=== PATIENT | female | born 1975 | race Caucasian/White ===

== ENCOUNTER 2018-03-06 02:19 | Emergency (ER) | payer SELFPAY ==
[2018-03-06] MEDS ORDERED: LIDOCAINE 1% (MDV) 20 ML INJ SC ×2 (03:00→04:30)
[2018-03-06] MEDS: LIDOCAINE 1% (MPF) 30 ML INJ INJ (04:30)
== END 2018-03-06 04:42 | disposition home or self-care (01) ==
LOC: FTE 02:19
DX: L02.414 Cutaneous abscess of left upper limb (principal); F17.210 Nicotine dependence, cigarettes, uncomplicated
CPT/HCPCS: 10060; 99283-25